=== PATIENT | male | born 1975 | race Caucasian/White ===

== ENCOUNTER 2020-11-15 16:11 | Inpatient (IN) | payer OTHER ==
[~2020-11-15] VITALS: Ht 190.5 cm; Wt 55.9 kg
--- NOTE | 2020-11-15 16:11 | NUR ---
BIBA TRANSFER FROM 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
[2020-11-15] MEDS ORDERED: PIPERACILLIN/TAZO 4.5 GM in DEXTROSE 5% 100 ML IVPB ONE (17:00)
--- NOTE | 2020-11-15 17:01 | NUR ---
PT UPRIGHT ON GURNEY AWAKE & CALM, WATCHING TV, RESPONDS APPROP TO STAFF, NAD, NO NEEDS AT THIS TIME, CALL LIGHT WITHIN REACH.
[2020-11-15] MEDS ORDERED: ACETAMINOPHEN 325 MG TABLET PO PRN (18:00)
[2020-11-15] MEDS ORDERED: PIPERACILLIN/TAZO 3.375 GM in DEXTROSE 5% 50 ML IV SCH (18:00)
[2020-11-15] MEDS ORDERED: ONDANSETRON ODT 4 MG PO PRN (18:00)
--- NOTE | 2020-11-15 19:02 | NUR ---
RECIEVED REPORT FROM COREY YADAV.
--- NOTE | 2020-11-15 19:04 | NUR ---
REPORT GIVEN TO KATE
--- NOTE | 2020-11-15 19:30 | NUR ---
Pt to be admitted to ONCOLOGY, room 433. Report called to ANN MARIE.
[2020-11-15] MEDS ORDERED: morphine SULFATE 10 MG/ML, 1ML ONE (20:00)
[2020-11-15] MEDS: morphine SULFATE 10 MG/ML, 1ML IVPush PRN ×2 (20:01→23:40)
--- NOTE | 2020-11-15 20:03 | NUR ---
PATIENT UP TO BATHROOM, MEDICATED PER MAY FOR 710 PAIN. NAD AT THIS TIME.
[2020-11-15] MEDS ORDERED: MOVIPREP POWDER 1 PREP KIT PO ONE (20:30)
--- NOTE | 2020-11-15 21:30 | NUR ---
PATIENT RESTING COMFORTABLY ON GURNEY, STATES MORPHINE HELPED PAIN, REQUESTED AND GIVEN PILLOW, NAD AT THIS TIME. WILL CONTINUE TO MONITOR.
[2020-11-15 22:10] VITALS: BP 125/78
[2020-11-15] MEDS: PIPERACILLIN/TAZO 3.375 GM in DEXTROSE 5% 50 ML IV SCH (23:20)
[2020-11-15] MEDS: ONDANSETRON 2MG/ML, 2ML IVPush PRN (23:40)
[2020-11-16] VITALS (8 sets, daily range): BP systolic 117–139; BP diastolic 74–87
[2020-11-16] MEDS: ONDANSETRON 2MG/ML, 2ML IVPush PRN ×2 (05:54→15:22)
[2020-11-16] MEDS: PIPERACILLIN/TAZO 3.375 GM in DEXTROSE 5% 50 ML IV SCH ×4 (05:54→23:18)
[2020-11-16] MEDS: morphine SULFATE 10 MG/ML, 1ML IVPush PRN ×3 (05:55→20:03)
[2020-11-16 06:32] LABS: ALANINE AMINOTRANSFERASE 14 U/L (12-78); ALBUMIN 1.6 g/dL (3.4-5.0); ANION GAP 7 mmol/L (5-15); BASOPHILS % (AUTO) 1 % (0-1); CALCIUM 8.3 mg/dL (8.5-10.1); CHLORIDE 109 mmol/L (98-107); CREATININE 0.45 mg/dL (0.7-1.3); EOSINOPHILS % (AUTO) 2 % (1-7); LYMPHOCYTES % (AUTO) 33 % (22-44); MEAN CORPUSCULAR HEMOGLOBIN 19.9 pg (27.5-34.5); MEAN CORPUSCULAR HGB CONC 30.5 g/dL (33.2-36.2); MEAN PLATELET VOLUME 5.9 fL (7.4-10.4); MONOCYTES % (AUTO) 11 % (2-9); NEUTROPHILS % (AUTO) 53 % (42-75); PLATELET COUNT 656 x10^3/uL (130-400); RED BLOOD COUNT 3.41 x10^6/uL (4.38-5.82); RED CELL DISTRIBUTION WIDTH 18.3 % (9.4-14.8)
[2020-11-16 06:33] LABS: ALKALINE PHOSPHATASE 72 U/L (45-117); BILIRUBIN,TOTAL 0.2 mg/dL (0.2-1.0); TOTAL PROTEIN 6.2 g/dL (6.4-8.2)
[2020-11-16] MEDS ORDERED: PROPOFOL 10 MG/ML, 20ML ONE (14:00)
[2020-11-16] MEDS ORDERED: FENTANYL PF 100 MCG/2ML ONE (15:12)
[2020-11-16] MEDS: FENTANYL PF 100 MCG/2ML IV PRN ×2 (15:15→15:25)
[2020-11-16] MEDS ORDERED: ONDANSETRON 2MG/ML, 2ML ONE (15:20)
[2020-11-16 18:08] LABS: MEAN CORPUSCULAR HEMOGLOBIN 20.2 pg (27.5-34.5); MEAN PLATELET VOLUME 6.1 fL (7.4-10.4); PLATELET COUNT 809 x10^3/uL (130-400); RED BLOOD COUNT 4.29 x10^6/uL (4.38-5.82); RED CELL DISTRIBUTION WIDTH 20.2 % (9.4-14.8)
[2020-11-16 18:10] LABS: MEAN CORPUSCULAR HGB CONC 29.5 g/dL (33.2-36.2)
[2020-11-16 20:52] LABS: BANDS%(MANUAL) 5 % (0-7); EOS#(MANUAL) 0.14 x10^3/uL (0.0-0.4); EOS% (MANUAL) 1 % (1-7); LYMPH#(MANUAL) 1.11 x10^3/uL (1-3.4); LYMPHS% (MANUAL) 8 % (22-44); MONOS#(MANUAL) 1.11 x10^3/uL (0.3-2.7); MONOS% (MANUAL) 8 % (2-9); SEG#(MANUAL) 10.84 x10^3/uL (1.8-6.8); SEGS% (MANUAL) 78 % (42-75)
[2020-11-16 20:53] LABS: POLYCHROMASIA 1+
[2020-11-16 20:57] LABS: HYPOCHROMIA 1+; MICROCYTOSIS 1+
[2020-11-16 20:58] LABS: <PLATELET ESTIMATE> INCREASED; SMALL PLATELETS 1+
[2020-11-16 21:09] LABS: TOXIC GRAN 1+
[2020-11-17] MEDS: ONDANSETRON 2MG/ML, 2ML IVPush PRN (00:51)
[2020-11-17] MEDS: morphine SULFATE 10 MG/ML, 1ML IVPush PRN ×2 (00:52→11:28)
[2020-11-17 00:57] VITALS: BP 135/78
[2020-11-17 05:11] LABS: MEAN CORPUSCULAR HEMOGLOBIN 20.7 pg (27.5-34.5); MEAN CORPUSCULAR HGB CONC 30.7 g/dL (33.2-36.2); MEAN PLATELET VOLUME 5.8 fL (7.4-10.4); PLATELET COUNT 681 x10^3/uL (130-400); RED BLOOD COUNT 3.88 x10^6/uL (4.38-5.82); RED CELL DISTRIBUTION WIDTH 19.1 % (9.4-14.8)
[2020-11-17 05:22] LABS: ALANINE AMINOTRANSFERASE 13 U/L (12-78); ALBUMIN 1.6 g/dL (3.4-5.0); ANION GAP 7 mmol/L (5-15); CALCIUM 8.4 mg/dL (8.5-10.1); CHLORIDE 105 mmol/L (98-107); CREATININE 0.53 mg/dL (0.7-1.3)
[2020-11-17 05:24] LABS: ALKALINE PHOSPHATASE 92 U/L (45-117); BILIRUBIN,TOTAL 0.7 mg/dL (0.2-1.0); TOTAL PROTEIN 6.3 g/dL (6.4-8.2)
[2020-11-17] MEDS: PIPERACILLIN/TAZO 3.375 GM in DEXTROSE 5% 50 ML IV SCH ×4 (05:28→23:06)
[2020-11-17 06:06] LABS: ANISOCYTOSIS 2+; BAND#(MANUAL) 0.39 x10^3/uL; BANDS%(MANUAL) 4 % (0-7); LYMPH#(MANUAL) 1.46 x10^3/uL (1-3.4); LYMPHS% (MANUAL) 15 % (22-44); MONOS#(MANUAL) 0.68 x10^3/uL (0.3-2.7); MONOS% (MANUAL) 7 % (2-9); MYELOCYTES% (MANUAL) 1 % (0-0); SEG#(MANUAL) 7.08 x10^3/uL (1.8-6.8); SEGS% (MANUAL) 73 % (42-75)
[2020-11-17 06:07] LABS: HYPOCHROMIA 1+; MICROCYTOSIS 1+; POLYCHROMASIA 1+
[2020-11-17 06:08] LABS: OVALOCYTES 1+
[2020-11-17 06:09] LABS: <PLATELET ESTIMATE> INCREASED; <PLT MORPHOLOGY> NORMAL PLT MORPH
[2020-11-17 06:41] VITALS: BP 134/80
[2020-11-17] MEDS ORDERED: POTASSIUM CHLORIDE 20 MEQ PACKET PO ONE (07:30)
[2020-11-17 07:50] LABS: MICROSCOPIC NOT IND
[2020-11-17 12:41] VITALS: BP 143/76
[2020-11-17] MEDS ORDERED: GADOTERATE 7.5 MMOL/15ML SYR ONE (15:30)
[2020-11-17] MEDS: OXYcodone IR 5MG TABLET PO PRN ×2 (17:38→23:06)
[2020-11-17 18:24] VITALS: BP 143/78
[2020-11-18 03:25] VITALS: BP 155/77
[2020-11-18] MEDS: OXYcodone IR 5MG TABLET PO PRN ×3 (03:30→13:14)
[2020-11-18] MEDS: PIPERACILLIN/TAZO 3.375 GM in DEXTROSE 5% 50 ML IV SCH ×2 (05:07→11:00)
[2020-11-18 06:10] LABS: BASOPHILS % (AUTO) 1 % (0-1); EOSINOPHILS % (AUTO) 1 % (1-7); LYMPHOCYTES % (AUTO) 16 % (22-44); MEAN CORPUSCULAR HGB CONC 31.1 g/dL (33.2-36.2); MEAN PLATELET VOLUME 5.9 fL (7.4-10.4); MONOCYTES % (AUTO) 9 % (2-9); NEUTROPHILS % (AUTO) 73 % (42-75); PLATELET COUNT 660 x10^3/uL (130-400); RED BLOOD COUNT 3.92 x10^6/uL (4.38-5.82); RED CELL DISTRIBUTION WIDTH 19.2 % (9.4-14.8)
[2020-11-18 06:16] LABS: CHLORIDE 102 mmol/L (98-107)
[2020-11-18 06:22] LABS: % IRON SATURATION 5 % (20-55); ALANINE AMINOTRANSFERASE 12 U/L (12-78); ALBUMIN 1.6 g/dL (3.4-5.0); ALKALINE PHOSPHATASE 83 U/L (45-117); ANION GAP 7 mmol/L (5-15); BILIRUBIN,TOTAL 0.2 mg/dL (0.2-1.0); CALCIUM 8.1 mg/dL (8.5-10.1); CREATININE 0.57 mg/dL (0.7-1.3); IRON LEVEL 13 mcg/dL (65-175); TOTAL IRON BINDING CAPACITY 248 mcg/dL (250-450); TOTAL PROTEIN 6.2 g/dL (6.4-8.2)
[2020-11-18 06:37] VITALS: BP 129/76
[2020-11-18] MEDS ORDERED: POTASSIUM CHLORIDE 20 MEQ TAB.ER.PRT PO ONE (09:00)
[2020-11-18 12:57] VITALS: BP 138/80
[2020-11-18] MEDS ORDERED: OXYC5TAB98 PO (14:37)
[2020-11-18] MEDS ORDERED: DOXY100C2 PO (14:37)
[2020-11-18] MEDS ORDERED: AMOX1TAB64 PO (14:37)
== END 2020-11-18 17:14 | disposition home or self-care (01) | DRG 374 ==
LOC: ED 16:41 → EDIP 16:46 → 4NW 21:49
PROVIDERS: ADMIT Internal Medicine; ATTEND Internal Medicine
PROC: 0DBN8ZX Excision of Sigmoid Colon, Via Natural or Artificial Opening Endoscopic, Diagnostic (ICD-10-PCS; 2020-11-16)
PROC: 30233N1 Transfusion of Nonautologous Red Blood Cells into Peripheral Vein, Percutaneous Approach (ICD-10-PCS; 2020-11-16)
PROC: 0DBP8ZX Excision of Rectum, Via Natural or Artificial Opening Endoscopic, Diagnostic (ICD-10-PCS; principal; 2020-11-16 09:30)
DX: C19 Malignant neoplasm of rectosigmoid junction (principal); E43 Unspecified severe protein-calorie malnutrition; C78.01 Secondary malignant neoplasm of right lung; C78.02 Secondary malignant neoplasm of left lung; K61.2 Anorectal abscess; D50.9 Iron deficiency anemia, unspecified; K64.9 Unspecified hemorrhoids; K59.00 Constipation, unspecified; F17.210 Nicotine dependence, cigarettes, uncomplicated; D63.8 Anemia in other chronic diseases classified elsewhere; Z20.822 Contact with and (suspected) exposure to COVID-19; E87.6 Hypokalemia; L98.8 Other specified disorders of the skin and subcutaneous tissue; Z80.0 Family history of malignant neoplasm of digestive organs; Z79.899 Other long term (current) drug therapy
CPT/HCPCS: 36415; 36430; 72197; 80053; 81003; 82378; 82728; 83540; 83550; 83735; 83993; 84100; 85025; 86850; 86900; 86923; 87040; 87070; 87077; 87186; 87205; 87635; 88305; 96374; 99285; G0378; J2405; J2543; J2704; J3010; A9575; J2270; P9016

== ENCOUNTER 2020-12-05 16:15 | Inpatient (IN) | payer OTHER ==
[~2020-12-05] VITALS: Ht 190.5 cm; Wt 62.0 kg
[~2020-12-05 16:15] MED LIST: AMOX1TAB64 PO; DOXY100C5 PO; OXYC5TAB98 PO
[2020-12-05] MEDS ORDERED: SODIUM CHLORIDE FLUSH 10ML SYR IVF ONE (16:30)
[2020-12-05] MEDS ORDERED: ONDANSETRON 2MG/ML, 2ML IVPush ONE (16:30)
[2020-12-05] MEDS ORDERED: SODIUM CHLORIDE 0.9% 1,000ML IVBOLUS ONE (16:30)
[2020-12-05] MEDS ORDERED: MORPHINE SULFATE 4 MG/ML, 1ML IVPush PRN (16:30)
[2020-12-05] MEDS ORDERED: ONDANSETRON 2MG/ML, 2ML ONE (16:42)
[2020-12-05] MEDS ORDERED: MORPHINE SULFATE 4 MG/ML, 1ML ONE (16:42)
[2020-12-05] MEDS ORDERED: LACTATED RINGERS 1,000 ML IVBOLUS ONE (17:00)
--- NOTE | 2020-12-05 17:03 | NUR ---
morphine 4 mg iv was ordered then canceled by dr cardozo then verbal order by dr cardozo to give morphine, sts he will reorder. st on monitor ivf infusing. a&ox4 gcs 15. 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, was told mets to lungs but lung biopsy clear. at [facility] yest for appt, told to go to er to get surgery. sts "blockage" in bowel, no real bm leaks stool thru fistulas, passing gas, no vomiting. call borjas in reach report to hira zarate. as
[2020-12-05 17:47] LABS: MEAN CORPUSCULAR HEMOGLOBIN 21.2 pg (27.5-34.5); MEAN CORPUSCULAR HGB CONC 30.6 g/dL (33.2-36.2); MEAN PLATELET VOLUME 6.4 fL (7.4-10.4); PLATELET COUNT 710 x10^3/uL (130-400); RED BLOOD COUNT 3.79 x10^6/uL (4.38-5.82); RED CELL DISTRIBUTION WIDTH 21.4 % (9.4-14.8)
[2020-12-05] MEDS ORDERED: MORPHINE SULFATE 4 MG/ML, 1ML IVPush ONE (18:00)
[2020-12-05] MEDS ORDERED: METRONIDAZOLE PMX 500MG/100ML 100 ML IV ONE (18:00)
[2020-12-05] MEDS ORDERED: PIPERACILLIN/TAZO 3.375 GM in DEXTROSE 5% 50 ML IVPB ONE (18:00)
[2020-12-05 18:02] LABS: ALBUMIN 1.7 g/dL (3.4-5.0); ANION GAP 8 mmol/L (5-15); CALCIUM 8.7 mg/dL (8.5-10.1); CHLORIDE 101 mmol/L (98-107)
[2020-12-05] MEDS ORDERED: METRONIDAZOLE PMX 500MG/100ML 100 ML ONE (18:03)
[2020-12-05] MEDS ORDERED: HYDROmorphone 2 MG/ML, 1ML ONE ×2 (18:03→20:28)
[2020-12-05 18:06] LABS: ALANINE AMINOTRANSFERASE 12 U/L (12-78); ALKALINE PHOSPHATASE 97 U/L (45-117); BILIRUBIN,TOTAL 0.2 mg/dL (0.2-1.0); CREATININE 0.76 mg/dL (0.7-1.3); TOTAL PROTEIN 6.7 g/dL (6.4-8.2)
--- NOTE | 2020-12-05 18:07 | NUR ---
medicated per emar with additional pain medicines (pain remains 10/06), as well as abx x 2 (after clarification that blood cultures x 2 drawn Erp aske for potassium repletion orders patient updated on estimated poc
[2020-12-05] MEDS: HYDROmorphone 2 MG/ML, 1ML IVPush PRN ×2 (18:09→20:31)
[2020-12-05 18:19] LABS: BAND#(MANUAL) 0.64 x10^3/uL; BANDS%(MANUAL) 5 % (0-7); LYMPH#(MANUAL) 1.14 x10^3/uL (1-3.4); LYMPHS% (MANUAL) 9 % (22-44); MONOS#(MANUAL) 1.02 x10^3/uL (0.3-2.7); MONOS% (MANUAL) 8 % (2-9); SEG#(MANUAL) 9.91 x10^3/uL (1.8-6.8); SEGS% (MANUAL) 78 % (42-75)
[2020-12-05 18:21] LABS: <PLATELET ESTIMATE> INCREASED
[2020-12-05 18:22] LABS: <PLT MORPHOLOGY> NORMAL PLT MORPH; ANISOCYTOSIS 1+; HYPOCHROMIA 1+; MICROCYTOSIS 1+; POLYCHROMASIA 1+; TARGET CELLS 1+
[2020-12-05 18:23] LABS: OVALOCYTES 1+
[2020-12-05] MEDS ORDERED: POTASSIUM CHLORIDE 40 MEQ in SODIUM CHLORIDE 0.9% 500 ML IV ONE (18:30)
--- NOTE | 2020-12-05 18:32 | NUR ---
POTASSIUM ORDERED FROM PHARMACY
--- NOTE | 2020-12-05 19:13 | NUR ---
Back from ct scan abx 1/2 complete, abx 2/2 initiated, potassium repletion started
[2020-12-05] MEDS ORDERED: OMNIPAQUE 350 MG/ML, 100ML BOTTLE ONE (19:17)
--- NOTE | 2020-12-05 20:29 | NUR ---
CC UA SENT RE MEDICATED FOR REBOUND IN PAIN TO 10/06
[2020-12-05] MEDS: LACTULOSE 10 GM/15 ML UDC PO SCH ×2 (21:00→22:35)
[2020-12-05] MEDS ORDERED: DOCUSATE 100 MG CAPSULE PO PRN (21:00)
[2020-12-05] MEDS ORDERED: ACETAMINOPHEN 325 MG TABLET PO PRN (21:00)
[2020-12-05] MEDS: PIPERACILLIN/TAZO 3.375 GM in DEXTROSE 5% 50 ML IV SCH (21:00)
[2020-12-05] MEDS ORDERED: ONDANSETRON 2MG/ML, 2ML IVPush PRN (21:00)
[2020-12-05 21:11] LABS: MICROSCOPIC INDICATED
[2020-12-05 21:56] VITALS: BP 143/89
[2020-12-05] MEDS ORDERED: OXYC1TAB18 PO (22:04)
[2020-12-05] MEDS: OXYcodone/APAP 5/325MG TABLET PO PRN (22:35)
[2020-12-05] MEDS: NS + 20MEQ KCL 1,000 ML IV SCH (23:48)
[2020-12-06 00:09] VITALS: BP 116/74
[2020-12-06] MEDS: HYDROmorphone 2 MG/ML, 1ML IVPush PRN ×7 (00:16→22:52)
[2020-12-06] MEDS: PIPERACILLIN/TAZO 3.375 GM in DEXTROSE 5% 50 ML IV SCH ×5 (02:22→20:42)
[2020-12-06 06:03] LABS: CHLORIDE 106 mmol/L (98-107)
[2020-12-06 06:08] LABS: BASOPHILS % (AUTO) 0 % (0-1); EOSINOPHILS % (AUTO) 1 % (1-7); LYMPHOCYTES % (AUTO) 12 % (22-44); MEAN CORPUSCULAR HEMOGLOBIN 21.4 pg (27.5-34.5); MEAN CORPUSCULAR HGB CONC 30.9 g/dL (33.2-36.2); MEAN PLATELET VOLUME 6.2 fL (7.4-10.4); MONOCYTES % (AUTO) 9 % (2-9); NEUTROPHILS % (AUTO) 78 % (42-75); PLATELET COUNT 623 x10^3/uL (130-400); RED BLOOD COUNT 3.36 x10^6/uL (4.38-5.82); RED CELL DISTRIBUTION WIDTH 21.7 % (9.4-14.8)
[2020-12-06 06:09] LABS: ANION GAP 4 mmol/L (5-15); CALCIUM 8.2 mg/dL (8.5-10.1); CREATININE 0.49 mg/dL (0.7-1.3)
[2020-12-06 07:24] VITALS: BP 113/68
[2020-12-06] MEDS: OXYcodone/APAP 5/325MG TABLET PO PRN ×2 (08:37→15:19)
[2020-12-06] MEDS: LACTULOSE 10 GM/15 ML UDC PO SCH ×2 (08:51→19:48)
[2020-12-06] MEDS: NS + 20MEQ KCL 1,000 ML IV SCH ×2 (08:51→17:36)
[2020-12-06 12:15] VITALS: BP 114/65
[2020-12-06 19:34] VITALS: BP 145/87
[2020-12-07 01:16] VITALS: BP 134/80
[2020-12-07] MEDS: HYDROmorphone 2 MG/ML, 1ML IVPush PRN ×5 (01:39→22:10)
[2020-12-07] MEDS: NS + 20MEQ KCL 1,000 ML IV SCH ×2 (02:20→11:44)
[2020-12-07] MEDS: PIPERACILLIN/TAZO 3.375 GM in DEXTROSE 5% 50 ML IV SCH ×4 (02:41→16:08)
[2020-12-07 06:34] VITALS: BP 119/74
[2020-12-07] MEDS: LACTULOSE 10 GM/15 ML UDC PO SCH ×2 (09:00→19:50)
[2020-12-07] MEDS: IRON SUCROSE COMPLEX 100MG/5ML IV SCH (09:24)
[2020-12-07] MEDS ORDERED: FENTANYL PF 100 MCG/2ML ONE ×4 (13:08→16:25)
[2020-12-07] MEDS ORDERED: MIDAZOLAM 1 MG/ML, 2ML ONE (13:08)
[2020-12-07 13:28] VITALS: BP 121/84
[2020-12-07] MEDS ORDERED: ACETAMINOPHEN 325 MG TABLET PO PRN (13:30)
[2020-12-07] MEDS ORDERED: hydrALAzine 20 MG/ML, 1ML IV PRN (13:30)
[2020-12-07] MEDS ORDERED: HYDROmorphone 1 MG/ML, 1ML INJ IVPush PRN (13:30)
[2020-12-07] MEDS ORDERED: LABETALOL 5MG/ML, 20ML IV PRN (13:30)
[2020-12-07] MEDS ORDERED: PROMETHAZINE 25 MG/ML, 1ML IVPush PRN (13:30)
[2020-12-07] MEDS ORDERED: DIAZEPAM 5 MG/ML, 2ML IVPush PRN (13:30)
[2020-12-07] MEDS ORDERED: OXYcodone 5 MG/5 ML ORAL.SOL UDC PO PRN (13:30)
[2020-12-07] MEDS ORDERED: MEPERIDINE/PF 25MG/0.5ML IVPush PRN (13:30)
[2020-12-07] MEDS ORDERED: ONDANSETRON 2MG/ML, 2ML IVPush PRN (13:30)
[2020-12-07] MEDS ORDERED: CHLORHEXIDINE 15 ML UDC ONE (13:43)
[2020-12-07] MEDS ORDERED: CHLORHEXIDINE 15 ML UDC PO ONE (14:00)
[2020-12-07] MEDS ORDERED: BUPIVACAINE/PF 0.5% ONE (14:15)
[2020-12-07] MEDS ORDERED: EPINEPHRINE 1 MG/ML, 1ML ONE (14:16)
[2020-12-07] MEDS ORDERED: ACETAMINOPHEN 650 MG/20.3 ML UDC ONE (15:56)
[2020-12-07] MEDS ORDERED: OXYcodone 5 MG/5 ML ORAL.SOL UDC ONE (15:56)
[2020-12-07] MEDS: FENTANYL PF 100 MCG/2ML IV PRN ×4 (16:10→17:45)
[2020-12-07] MEDS ORDERED: CEFTRIAXONE 1,000 MG IV SCH (17:00)
[2020-12-07] MEDS: CEFTRIAXONE 1,000 MG in DEXTROSE 5% 50 ML IVPB SCH (18:36)
[2020-12-07 19:52] VITALS: BP 128/83
[2020-12-08 00:17] VITALS: BP 126/82
[2020-12-08] MEDS: NS + 20MEQ KCL 1,000 ML IV SCH ×3 (01:45→18:05)
[2020-12-08] MEDS: HYDROmorphone 2 MG/ML, 1ML IVPush PRN ×6 (01:45→20:02)
[2020-12-08 06:26] VITALS: BP 124/82
[2020-12-08 06:46] LABS: ANION GAP 5 mmol/L (5-15); CALCIUM 8.1 mg/dL (8.5-10.1); CHLORIDE 106 mmol/L (98-107)
[2020-12-08 06:48] LABS: CREATININE 0.43 mg/dL (0.7-1.3)
[2020-12-08 06:51] LABS: BASOPHILS % (AUTO) 1 % (0-1); EOSINOPHILS % (AUTO) 1 % (1-7); LYMPHOCYTES % (AUTO) 15 % (22-44); MEAN CORPUSCULAR HEMOGLOBIN 21.7 pg (27.5-34.5); MEAN CORPUSCULAR HGB CONC 31.3 g/dL (33.2-36.2); MEAN PLATELET VOLUME 6.2 fL (7.4-10.4); MONOCYTES % (AUTO) 9 % (2-9); NEUTROPHILS % (AUTO) 74 % (42-75); PLATELET COUNT 663 x10^3/uL (130-400); RED BLOOD COUNT 3.44 x10^6/uL (4.38-5.82)
[2020-12-08] MEDS: IRON SUCROSE COMPLEX 100MG/5ML IV SCH (08:47)
[2020-12-08] MEDS: LACTULOSE 10 GM/15 ML UDC PO SCH ×2 (08:47→20:01)
[2020-12-08 14:59] VITALS: BP 138/85
[2020-12-08] MEDS: CEFTRIAXONE 1,000 MG in DEXTROSE 5% 50 ML IVPB SCH (16:50)
[2020-12-08 19:38] VITALS: BP 133/90
[2020-12-09 00:45] VITALS: BP 115/73
[2020-12-09 01:09] VITALS: BP 130/87
[2020-12-09] MEDS: HYDROmorphone 2 MG/ML, 1ML IVPush PRN ×7 (01:09→23:16)
[2020-12-09] MEDS: NS + 20MEQ KCL 1,000 ML IV SCH ×3 (02:46→18:22)
[2020-12-09] MEDS: LACTULOSE 10 GM/15 ML UDC PO SCH ×2 (09:00→19:39)
[2020-12-09] MEDS: IRON SUCROSE COMPLEX 100MG/5ML IV SCH (09:51)
[2020-12-09 09:58] VITALS: BP_SYST 121; BP_SYST 135; BP_DIAS 78; BP_DIAS 84
[2020-12-09 16:00] VITALS: BP 126/85
[2020-12-09] MEDS: OXYcodone/APAP 5/325MG TABLET PO PRN (18:29)
[2020-12-09 19:55] VITALS: BP 126/84
[2020-12-10 00:02] VITALS: BP 133/51
[2020-12-10] MEDS: NS + 20MEQ KCL 1,000 ML IV SCH ×2 (02:14→10:26)
[2020-12-10] MEDS: OXYcodone/APAP 5/325MG TABLET PO PRN ×3 (02:15→11:09)
[2020-12-10 05:33] LABS: BASOPHILS % (AUTO) 1 % (0-1); EOSINOPHILS % (AUTO) 5 % (1-7); LYMPHOCYTES % (AUTO) 24 % (22-44); MEAN CORPUSCULAR HEMOGLOBIN 21.5 pg (27.5-34.5); MEAN CORPUSCULAR HGB CONC 30.7 g/dL (33.2-36.2); MONOCYTES % (AUTO) 10 % (2-9); NEUTROPHILS % (AUTO) 59 % (42-75); PLATELET COUNT 638 x10^3/uL (130-400); RED BLOOD COUNT 3.49 x10^6/uL (4.38-5.82); RED CELL DISTRIBUTION WIDTH 20.8 % (9.4-14.8)
[2020-12-10 05:40] LABS: ANION GAP 4 mmol/L (5-15); CALCIUM 8.2 mg/dL (8.5-10.1); CHLORIDE 110 mmol/L (98-107); CREATININE 0.35 mg/dL (0.7-1.3)
[2020-12-10] MEDS: HYDROmorphone 2 MG/ML, 1ML IVPush PRN (08:31)
[2020-12-10] MEDS: LACTULOSE 10 GM/15 ML UDC PO SCH (08:31)
[2020-12-10] MEDS: IRON SUCROSE COMPLEX 100MG/5ML IV SCH (08:31)
[2020-12-10 08:33] VITALS: BP 137/88
[2020-12-10] MEDS ORDERED: OXYC1TAB12 PO (12:10)
[2020-12-10] MEDS ORDERED: ENOXAPARIN 40 MG/0.4 ML SQ SCH (16:00)
== END 2020-12-10 13:10 | disposition home or self-care (01) | DRG 871 ==
LOC: ED 19:37 → EDIP 21:09 → 4NW 21:52
PROVIDERS: ADMIT Internal Medicine; ATTEND Hospitalist
DX: A41.9 Sepsis, unspecified organism (principal); E43 Unspecified severe protein-calorie malnutrition; C20 Malignant neoplasm of rectum; C78.00 Secondary malignant neoplasm of unspecified lung; D62 Acute posthemorrhagic anemia; E87.1 Hypo-osmolality and hyponatremia; K56.609 Unspecified intestinal obstruction, unspecified as to partial versus complete obstruction; K61.1 Rectal abscess; N39.0 Urinary tract infection, site not specified; R64 Cachexia; D50.9 Iron deficiency anemia, unspecified; E86.9 Volume depletion, unspecified; E87.6 Hypokalemia; F17.210 Nicotine dependence, cigarettes, uncomplicated; K52.9 Noninfective gastroenteritis and colitis, unspecified; K60.5 Anorectal fistula; Z80.0 Family history of malignant neoplasm of digestive organs; Z85.048 Personal history of other malignant neoplasm of rectum, rectosigmoid junction, and anus; Z93.3 Colostomy status; Z20.822 Contact with and (suspected) exposure to COVID-19
CPT/HCPCS: 36415; 96365; 96375; 99285; S0020; 74177; 80048; 80053; 81001; 82728; 83540; 83550; 83605; 83735; 85025; 87040; 87077; 87086; 87186; 87635; 88305; 88331; 88341; 88342; 93005; G0378; J0171; J0696; J1170; J1756; J2250; J2405; J2543; J3010; J3480; Q9967; J7030; J7040; J7120